=== PATIENT | female | born 1965 | race African-American/Black ===

== ENCOUNTER 2024-05-02 11:58 | Emergency (ER) | payer MEDICARE, MEDICAID | END 2024-05-02 15:22 | disposition home or self-care (01) | LOC: CSHERS 11:58 | DX: J18.9 Pneumonia, unspecified organism (principal); J01.90 Acute sinusitis, unspecified; J02.9 Acute pharyngitis, unspecified; I10 Essential (primary) hypertension | CPT/HCPCS: 71045; 87428; 99284 ==